=== PATIENT | female | born 1960 | race Caucasian/White ===

== ENCOUNTER 2017-01-03 14:24 | Inpatient (IN) ==
[2017-01-03] MEDS: SALINE FLUSH 10ml SYRINGE IVF PRN ×2 (14:52→16:09)
--- NOTE | 2017-01-03 15:47 | XRay Report ---
Indication: hip dislocation, past replacement repeated dislocation PROCEDURE: XR hip LT min 2V: Encounter: Initial Comparison: February 12, 2009 Findings: Lateral and posterior dislocation of the femoral component of the left total hip prosthesis. Evaluation is somewhat limited due to exposure technique and patient body habitus. No obvious acute fracture seen. Impression: Dislocation of the left hip prosthesis. .
--- OUTSIDE RECORDS SUMMARY | 2017-01-03 15:55 | External Medical Summary | Referral Summary ---
:1960 Author Organization [facility] Address [address] [place] [address] [place] [id number] Care Team Providers Name Role Phone Stacey Hansen Primary Care Physician Encounter VC Date(s): 04/14/16 - 04/14/16 [facility], [address] [place] [id number]- [place] Discharge Disposition: 01-Home or Self Care Attending Physician: Madhu Mullen MD Admitting Physician: Madhu Mullen MD Vital Signs No data available for this section Problem List Condition Effective Dates Status Health Status Informant Morbid obesity with body mass index Active (BMI) of 60.0 to 69.9 in adult(Confirmed) GERD (gastroesophageal reflux Active disease)(Confirmed) History of DVT of lower Active extremity(Confirmed) Migraine headache(Confirmed) Active Depression(Confirmed) Active Osteoarthritis(Confirmed) Active Allergies, Adverse Reactions, Alerts Substance Reaction Severity Status codeine1 Active Iron2 Active sulfa drugs3 Active 1UPSET [id number] DIARRHEA Medications ibuprofen See Instructions, 800 mg Oral PRN JOINT PAIN, 0 Refill(s) Start Date: 03/29/16 Status: Orderedpantoprazole 20 mg oral delayed release tablet 20 mg 1 tabs, Oral, Daily, 0 Refill(s) Start Date: 03/29/16 Status: Orderedsertraline See Instructions, 1 Oral Daily UNKNOWN DOSE, 0 Refill(s) Start Date: 03/29/16 Status: Ordered Results No data available for this section Immunizations No data available for this section Procedures Procedure Date Related Diagnosis Body Site Bilateral extraction of cataracts 2010 History of right total knee replacement 2009 History of left hip replacement 2008 History of right hip replacement 1993 Appendectomy 1967 Social History Social History Type Response Smoking Status Former smoker; Type: Cigarettes; Date Last Use: QUIT 40 YEARS AGO Assessment and Plan Extracted from: Title: staple removal Author: Radha Reilly RN Date: 04/14/16 Patient presents post laparoscopic cholecystectomy for staple removal. There are 7 trochar sites present that are irritated from the gilbert but not infected. They are red but not warm to the touch. Patient reports sites are itchy. Gilbert removed without difficulty. Triple anti-biotic applied to sites. Patient tolerated well. Instructed to call the office with any questions or concerns.
[2017-01-03] MEDS ORDERED: HYDROMORPHONE 2 MG/ML INJECTION IVP ONE (15:57)
--- NOTE | 2017-01-03 16:04 | Emergency Department Report ---
Extremity Problem HPI - General Chief complaint: Extremity Problem,Nontraumatic Stated complaint: L Hip out of place Time Seen by Provider: 01/03/17 14:38 Source: patient Mode of arrival: EMS Limitations: no limitations - History of Present Illness HPI Narrative: Pt was bending over when she felt her left hip come out of place. Pt has had multiple left hip dislocations to her non [place] joint. She has a history of a revision in 2008 MD Complaint: joint paint Onset (ago): hour(s) Consistency: constant Location: left Severity scale (1-10): 10 Quality: constant Radiation: none Relieving factors: nothing Exacerbating factors: range of motion Associated symptoms: denies other symptoms - Related Data Home Medications Medication Instructions Recorded Confirmed Cetirizine [Zyrtec] 10 mg PO DAILY 01/03/17 01/03/17 Sertraline [Zoloft] 100 mg PO DAILY 01/03/17 01/03/17 Previous Rx's Medication Instructions Recorded Aspirin/Calcium Carbonate/Mag 325 mg PO BID #84 tab 01/06/17 [Aspirin Buffered 325 mg Tab] Hydrocodone/APAP 5/325 [[place] 1 - 2 tab PO Q6H PRN #60 tab 01/06/17 5/325] Allergies Allergy/AdvReac Type Severity Reaction Status Date / Time codeine Allergy Unknown Verified 01/11/17 15:11 iron AdvReac Mild VOMITS Verified 01/11/17 15:11 Sulfa (Sulfonamide AdvReac Mild N&V Verified 01/11/17 15:11 Antibiotics) Rocuronium [place] Allergy Intermediate facial Uncoded 01/11/17 15:11 swelling; aches; hives; chills Review of Systems All systems: reviewed and negative except as stated Musculoskeletal: Reports: back pain, joint swelling, arthralgia [facility] Patient Stated Medical History Depression Yes Clinic Medical History (Last Reviewed 01/11/17 @ 17:26 by [facility] Zhang) DVT (deep venous thrombosis) (Chronic Medical) Arthritis (Chronic Medical) Depression (Chronic Medical) Cataracts, bilateral (Chronic Medical) Family History: Family History (Last Reviewed 01/11/17 @ 17:26 by [facility] Zhang) Father Arthritis Colon polyps Heart attack High cholesterol Mother Dementia Sister Ovarian cancer Stroke - Social History Smoking status: Never smoker Physical Exam - Limitations Limitations: physical limitation - General General appearance: alert, in distress, obese - Normal Exams: Head:: Normocephalic without trauma Eyes:: Pupils are PERRLA w/ EOMI Neck:: Full range of motion Chest/Respirations:: Clear all burd[place], with good airflow, and symmetry bilaterally Cardiovascular:: Regular rate and rhythm, without murmur or gallop, Pulses 2+ all extremities Abdomen:: Bowel sounds positive, soft, non-tender, non-distended Integumentary:: No rashes Neurological:: Patient is alert, and oriented Psychiatric:: Patient exhibits, appropriate attention, emotion and affect - Expanded Lower Extremity Exam Hip/Pelvis exam: Present: tenderness, deformity, crepitus, dislocation Course Vital Signs Temperature 98.0 F 01/03/17 14:25 Pulse Rate 99 01/03/17 14:25 Respiratory Rate 24 01/03/17 14:25 Blood Pressure 185/101 H 01/03/17 14:25 Pulse Oximetry 97 01/03/17 14:25 Temperature 96.7 F L 01/06/17 13:15 Pulse Rate 59 L 01/06/17 13:15 Respiratory Rate 16 01/06/17 13:15 Blood Pressure 124/63 01/06/17 13:15 Pulse Oximetry 96 01/06/17 13:15 Extremity Problem, Nontraumati - Differential Diagnosis Likely: lower extremity edema (fracture, dislocation) - Lab Data Result diagrams: 01/06/17 04:22 01/06/17 04:22 Disposition Clinical Impression: Left Hip Dislocation Disposition: 02 To [facility] Acute Care Condition: Improved - Seen By: midlevel
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
[2017-01-03] MEDS ORDERED: LR 1,000 ML IV SCH (18:15)
[2017-01-03] MEDS ORDERED: FentaNYL 100 MCG/2 ML INJECTION ONE (18:44)
[2017-01-03] MEDS ORDERED: PROPOFOL 20 ML ONE (18:44)
[2017-01-03] MEDS ORDERED: SUCCINYLCHOLINE 20mg/mL 10mL INJECTION ONE (18:44)
[2017-01-03] MEDS ORDERED: ONDANSETRON 4 MG/2 ML INJECTION IVP PRN ×2 (18:56→20:43)
[2017-01-03] MEDS ORDERED: HYDROMORPHONE 2 MG/ML INJECTION IVP PRN (18:56)
[2017-01-03] MEDS ORDERED: METOCLOPRAMIDE 10mg/2ml INJECTION IVP PRN (18:56)
--- NOTE | 2017-01-03 18:56 | Anesthesia Preoperative Report ---
Anesthesia Preoperative Record - Date and Time Date: 01/03/17 Preoperative Diagnosis: dislocated left mac Proposed Procedure: Closed reduction left hip NPO Since Date: 01/03/17 NPO Since Time: 13:00 Allergies/Adverse Reactions: Allergies Allergy/AdvReac Type Severity Reaction Status Date / Time codeine Allergy Unknown Verified 01/03/17 15:31 iron AdvReac Mild VOMITS Verified 01/03/17 15:31 Sulfa (Sulfonamide AdvReac Mild N&V Verified 01/03/17 15:31 Antibiotics) Rocuronium [place] Allergy Intermediate facial Uncoded 03/31/16 09:50 swelling; aches; hives; chills - Vital Signs Vital Signs: Temperature 98.0 F 01/03/17 14:25 Pulse Rate 99 01/03/17 14:25 Respiratory Rate 24 01/03/17 14:25 Blood Pressure 185/101 H 01/03/17 14:25 Pulse Oximetry 97 01/03/17 14:25 Height and Weight: Height 1.55 m Weight 147.4 kg - Medications Inpatient Medications: Current Medications Lactated Ringer's (Lactated Ringers) 1,000 mls @ 50 mls/hr IV .Q20H AKIN Sodium Chloride (Iv Flush) 10 - 80 ml IVF PRN PRN PRN Reason: Flushing Last Admin: 01/03/17 16:09 Dose: 20 ml Home Medications: Home Medications Medication Instructions Recorded Confirmed Type Ibuprofen 800 mg PO DAILY #0 07/02/09 01/03/17 History Cetirizine [Zyrtec] 10 mg PO DAILY 01/03/17 01/03/17 History Sertraline [Zoloft] 100 mg PO DAILY 01/03/17 01/03/17 History - Medical History Gastrointestional: Reports: Morbid Obesity - Surgical History Musculoskeletal Surgery/Tx: Reports: Total Hip Replacement (Left x2) Anesthesia Reactions: None Hx Family Anesthesia Reaction: No History of Motion Sickness: No - Social History Smoking Status: Never smoker Hx Chewing Tobacco Use: No Second Hand Exposure: No Substance Use Type: does not use Alcohol Intake Frequency: a few times a month - Pertinent Findings EKG: Sinus Rhythm - Physical Exam Respiratory Exam: Present: lungs clear Cardiovascular Exam: Present: regular rate and rhythm - Airway Assessment Mallampati Score: II TMD: 3 Fingerbreadths Neck Extension: good Overall Assessment: no airway concerns - ASA ASA Score: 2, E - Plan Anesthesia: General Inhalation Gases - Discussion Discussion: Discussed risks/options/alternatives of anesthesia and questions answered. Patient consents. Nursing pain assessment noted. Present for Discussion: family member Attestation Statement: Prior to the delivery of any anesthetic medication, I examined the patient, developed the plan, obtained the patient's consent and discussed the risk and benefits of the procedure with the patient/guardian. - Additional Information Seen by Anesthesia: Yes
[2017-01-03] MEDS ORDERED: GLYCOPYRROLATE 0.4 MG/2 ML INJECTION ONE (19:02)
[2017-01-03] MEDS ORDERED: DEXAMETHASONE 4 MG/ML INJECTION ONE (19:05)
[2017-01-03] MEDS ORDERED: ONDANSETRON 4 MG/2 ML INJECTION ONE (19:05)
--- NOTE | 2017-01-03 19:21 | Anesthesia Postoperative Note ---
- Date and Time Date: 01/03/17 Time: 19:20 - Status Patient Participated in Evaluation: Patient Participated in Person Vital Signs: Temperature 98.0 F 01/03/17 14:25 Pulse Rate 99 01/03/17 14:25 Respiratory Rate 24 01/03/17 14:25 Blood Pressure 185/101 H 01/03/17 14:25 Pulse Oximetry 97 01/03/17 14:25 Respiratory Function: Airway Patent Cardiovascular Function: Regular Pulse EKG: Sinus Rhythm Mental Status: Alert and Oriented Pain Intensity: 0 Hydration: IV Infusing Complications During Recover: None Apparent - Follow-Up Instructions Instructions: Per Surgeon
[2017-01-03] MEDS ORDERED: MORPHINE SULFATE 10 MG/ML VIAL IVP PRN (20:43)
[2017-01-03] MEDS ORDERED: SENNA + DOCUSATE TABLET PO PRN (20:43)
[2017-01-03] MEDS ORDERED: ENOXAPARIN 40 MG/0.4 ML INJECTION SQ ONE (21:00)
[2017-01-03] MEDS: LR 1,000 ML IV SCH (21:22)
[2017-01-03] MEDS: HYDROCODONE/APAP 5mg/325mg TABLET PO PRN (23:22)
[2017-01-04] MEDS: IBUPROFEN 800 MG TABLET PO PRN ×2 (04:53→20:40)
--- NOTE | 2017-01-04 08:41 | Orthopedic Progress Note ---
Date: Subjective/Severity of Illness: Cynthia underwent a successful closed reduction of her left total hip dislocation under anesthesia last evening. She has a constrained type hip system with a locking ring. That ring will require an open procedure to restore it properly into the acetabular shell and liner. We will need to get new implants ordered in today and will plan to do an open revision of these components on . Cynthia is not having much pain this AM but is tired of lying on her back. She has some numbness in her foot that has been there since her last revision. No new complaints or concerns. Orthopedic Objective PO Vital signs: Temperature 96.6 F L 01/04/17 07:00 Pulse Rate 66 01/04/17 07:00 Respiratory Rate 16 01/04/17 07:00 Blood Pressure 135/67 01/04/17 07:00 Pulse Oximetry 91 01/04/17 07:00 Height and Weight: Height 5 ft 1 in Weight 323 lb 6.69 oz - Constitutional General Appearance: Present: alert, mild distress, morbidly obese - Respiratory Exam Present: non-labored - Cardiovascular Exam Present: pedal pulses intact - Integumentary Exam Present: pink, warm, dry - Neurological Exam Present: intact to light touch (But reports some numbness medial foot and lateral calf.), no deficits - Psychiatric Exam Present: alert, normal affect Orthopedic Assessment and Plan (1) Dislocation of hip, left, closed Status: Acute Assessment and Plan: Cynthia will be NPO after midnight tonight. Change to an inpatient status as I expect her stay to be more than 2 midnights. Plan open revision of the left total hip . Lovenox and SCDs for DVT coverage. Check labs in the AM. - Anticoagulation Therapy Anticoagulation: other (Lovenox ) Hospital Course Summary Disclaimer: The visit summary below is not to be considered part of the above Progress Note.
[2017-01-04] MEDS ORDERED: ENOXAPARIN 40 MG/0.4 ML INJECTION SQ ONE (09:00)
[2017-01-04] MEDS: LR 1,000 ML IV SCH ×2 (09:18→20:37)
[2017-01-04] MEDS: SERTRALINE 100 MG TABLET PO SCH (09:18)
[2017-01-04] MEDS: HYDROCODONE/APAP 5mg/325mg TABLET PO PRN ×4 (09:27→22:20)
[2017-01-04] MEDS: POLYETHYL GLYCOL 3350 17gm PACKET PO SCH (10:03)
[2017-01-04] MEDS: CETIRIZINE 10 MG TABLET PO SCH (10:03)
--- NOTE | 2017-01-04 11:15 | Operative Note ---
DATE OF OPERATION 01/03/2017 PREOPERATIVE DIAGNOSIS Left hip replacement dislocation. POSTOPERATIVE DIAGNOSIS Left hip replacement dislocation. PROCEDURE Closed reduction of left total hip arthroplasty. SURGEON Mohit Sigala MD CONSTRUCTION REP Manas Jacques PA-C COMPLICATIONS None ANESTHESIA General endotracheal tube DESCRIPTION OF PROCEDURE Mrs. Oscar and her left hip are identified and marked in the preoperative holding area. She was brought back to the operating suite and placed supine on the operating table. She was placed under general anesthesia. A [place] catheter was placed. Time-out was performed. I began by pulling longitudinal traction with the hip flexed in 50 degrees. I was unable to feel any obvious clunk. Patient's body habitus made it difficult to palpate the hip contours. We then brought in fluoroscopy and with the advantage of fluoro, we could get the ball back perched centrally into the liner but it did not push into the liner. We gave it some gentle pressure on the greater trochanter towards the acetabulum and with this we did feel a clunk and x-ray confirmed that the head was back into the liner. The constrained ring of course was still out of place but did not show any signs of fracture. A pillow was placed between the patient's legs. She was allowed to awake from general anesthesia and taken to the recovery room under the care of Anesthesia. She tolerated the procedure well and there were no complications. OPAL
--- NOTE | 2017-01-04 11:23 | Remote Fluorsocopy Report ---
Indication: DISLOCATION PROCEDURE: RF hip LT 2 view: Encounter: Initial Comparison: Left hip radiograph dated January 03, 2017 Findings: Six fluoroscopic spot images are submitted for interpretation. Images show interval reduction of the left femoral component dislocation. Impression: Fluoroscopy as above. Fluoroscopy time is 61 seconds. Fluoroscopy dose is 3790 mRad. .
[2017-01-05] MEDS: LR 1,000 ML IV SCH ×4 (05:30→14:05)
[2017-01-05] MEDS: POLYETHYL GLYCOL 3350 17gm PACKET PO SCH (08:02)
[2017-01-05] MEDS: SERTRALINE 100 MG TABLET PO SCH (08:02)
[2017-01-05] MEDS: CETIRIZINE 10 MG TABLET PO SCH (08:02)
[2017-01-05] MEDS: SALINE FLUSH 10ml SYRINGE IVF PRN (10:01)
[2017-01-05] MEDS ORDERED: MIDAZOLAM 2mg/2ml INJECTION IVP ONE (11:53)
[2017-01-05] MEDS ORDERED: ACETAMINOPHEN IV 1,000 MG/100 ML VIAL IV ONE (11:54)
--- NOTE | 2017-01-05 11:57 | Anesthesia Preoperative Report ---
Anesthesia Preoperative Record - Date and Time Date: 01/05/17 Preoperative Diagnosis: dislocated left mac Proposed Procedure: left hip revision NPO Since Date: 01/04/17 NPO Since Time: 23:00 Allergies/Adverse Reactions: Allergies Allergy/AdvReac Type Severity Reaction Status Date / Time codeine Allergy Unknown Verified 01/03/17 15:31 iron AdvReac Mild VOMITS Verified 01/03/17 15:31 Sulfa (Sulfonamide AdvReac Mild N&V Verified 01/03/17 15:31 Antibiotics) Rocuronium [place] Allergy Intermediate facial Uncoded 03/31/16 09:50 swelling; aches; hives; chills - Vital Signs Vital Signs: Temperature 97.2 F 01/05/17 07:47 Pulse Rate 62 01/05/17 07:47 Respiratory Rate 16 01/05/17 07:47 Blood Pressure 130/78 01/05/17 07:47 Pulse Oximetry 92 01/05/17 07:47 Height and Weight: Weight 148.1 kg - Medications Inpatient Medications: Current Medications Acetaminophen/Hydrocodone Bitart ([place] 5/325) 1 - 2 tab PO Q6H PRN PRN Reason: Pain Last Admin: 01/04/17 22:20 Dose: 2 tab Cefazolin Sodium (Kefzol) 3 g IVP PREOP ONE Stop: 01/05/17 12:01 Cetirizine HCl (Zyrtec) 10 mg PO DAILY [facility] Last Admin: 01/05/17 08:02 Dose: Not Given Lactated Ringer's (Lactated Ringers) 1,000 mls @ 80 mls/hr IV .[id number] [facility] Last Admin: 01/05/17 11:29 Dose: Not Given Lactated Ringer's (Lactated Ringers) 1,000 mls @ 50 mls/hr IV .Q20H [facility] Last Admin: 01/05/17 10:01 Dose: 50 mls/hr Acetaminophen (Ofirmev) 1,000 mg in 100 mls @ 400 mls/hr IV O ONE Stop: 01/05/17 12:08 Ibuprofen (Motrin) 800 mg PO Q8H PRN PRN Reason: Pain Last Admin: 01/04/17 20:40 Dose: 800 mg Magnesium Hydroxide (Mom) 30 ml PO DAILY PRN PRN Reason: Constipation Midazolam HCl (Versed) 2 mg IVP PREOP ONE Stop: 01/05/17 11:54 Morphine Sulfate (Morphine Sulfate Vial) 1 - 4 mg IVP Q2H PRN PRN Reason: Pain Last Admin: 01/05/17 05:28 Dose: 3 mg Nystatin (Mycostatin) 1 applic TP TID [facility] Last Admin: 01/05/17 08:02 Dose: 1 applic Ondansetron HCl (Zofran) 4 mg IVP Q6H PRN PRN Reason: Nausea &/or vomiting Polyethylene Glycol (Miralax) 17 gm PO DAILY [facility] Last Admin: 01/05/17 08:02 Dose: Not Given Senna/Docusate Sodium (Senna Plus Tablet) 1 tab PO BID PRN PRN Reason: Constipation Sertraline HCl (Zoloft) 100 mg PO DAILY [facility] Last Admin: 01/05/17 08:02 Dose: Not Given Home Medications: Home Medications Medication Instructions Recorded Confirmed Type Ibuprofen 800 mg PO DAILY #0 07/02/09 01/03/17 History Cetirizine [Zyrtec] 10 mg PO DAILY 01/03/17 01/03/17 History Sertraline [Zoloft] 100 mg PO DAILY 01/03/17 01/03/17 History Is Patient on Beta Landy?: No - Medical History Respiratory: DENIES: Asthma Cardiovascular: DENIES: Hypertension Gastrointestional: DENIES: Gastroesophageal Reflux Disease Renal/Endocrine: Reports: Other (morbid obesity) DENIES: Diabetes Mellitus Type 2 Other History: DENIES: Anesthesia Reactions - Surgical History Respiratory Surgery/Treatments: DENIES: BiPAP Use Musculoskeletal Surgery/Tx: Reports: Total Hip Replacement (Left x2) Anesthesia Reactions: None Hx Family Anesthesia Reaction: No History of Motion Sickness: No - Social History Smoking Status: Never smoker Hx Chewing Tobacco Use: No Second Hand Exposure: No Substance Use Type: does not use Alcohol Intake Frequency: a few times a month - Pertinent Findings Laboratory: CBC and BMP 01/05/17 04:16 01/05/17 04:16 [facility] 01/05/17 04:16 Sodium 144 Potassium 4.4 Chloride 103 Carbon Dioxide 32 H BUN 21.0 H Creatinine 0.9 Glucose 100 Calcium 9.2 EKG: Sinus Rhythm - Physical Exam Respiratory Exam: Present: lungs clear, bilateral breath sounds equal Cardiovascular Exam: Present: regular rate and rhythm - Airway Assessment Mallampati Score: II TMD: 3 Fingerbreadths Neck Extension: good Overall Assessment: may be difficult mask vent, may be difficult intubation - ASA ASA Score: 2, E - Plan Anesthesia: General Inhalation Gases - Discussion Discussion: Discussed risks/options/alternatives of anesthesia and questions answered. Patient consents. Nursing pain assessment noted. Present for Discussion: family member Attestation Statement: Prior to the delivery of any anesthetic medication, I examined the patient, developed the plan, obtained the patient's consent and discussed the risk and benefits of the procedure with the patient/guardian. - Additional Information Seen by Anesthesia: Yes
[2017-01-05] MEDS ORDERED: CEFAZOLIN 1 G INJECTION IVP ONE (12:00)
[2017-01-05] MEDS ORDERED: FentaNYL 100 MCG/2 ML INJECTION ONE (12:03)
[2017-01-05] MEDS ORDERED: PROPOFOL 500 MG/50 ML VIAL IV ONE (12:03)
[2017-01-05] MEDS ORDERED: DEXAMETHASONE 4 MG/ML INJECTION ONE (12:07)
[2017-01-05] MEDS ORDERED: DiphenhydrAMINE 50 MG/ML INJECTION ONE (12:07)
[2017-01-05] MEDS ORDERED: ONDANSETRON 4 MG/2 ML INJECTION ONE (12:07)
[2017-01-05] MEDS ORDERED: SUCCINYLCHOLINE 20mg/mL 10mL INJECTION ONE (12:29)
[2017-01-05] MEDS ORDERED: TOTAL JOINT INJECTION MIXTURE 65.25 ml OPSITE ONE (12:30)
[2017-01-05] MEDS ORDERED: VANCOMYCIN 1,000 MG INJECTION ONE (13:27)
[2017-01-05] MEDS: TRANEXAMIC ACID 1gm/NS 100ml IRR MIX IR ONE ×2 (13:57→15:49)
[2017-01-05] MEDS: VANCOMYCIN 1,000 MG INJECTION IAR ONE ×2 (13:58→15:49)
[2017-01-05] MEDS ORDERED: HYDROMORPHONE 2 MG/ML INJECTION ONE (14:40)
--- NOTE | 2017-01-05 15:02 | Anesthesia Postoperative Note ---
- Date and Time Date: 01/05/17 Time: 15:01 - Status Patient Participated in Evaluation: Patient Participated in Person Vital Signs: Temperature 97.2 F 01/05/17 07:47 Pulse Rate 64 01/05/17 12:10 Respiratory Rate 13 01/05/17 12:10 Blood Pressure 150/67 H 01/05/17 12:10 Pulse Oximetry 94 01/05/17 12:10 Respiratory Function: Airway Patent Cardiovascular Function: Regular Pulse EKG: Sinus Rhythm Mental Status: Alert and Oriented Pain Intensity: 4 Hydration: IV Infusing Complications During Recover: None Apparent - Follow-Up Instructions Instructions: Per Surgeon
[2017-01-05] MEDS ORDERED: NOZIN NASAL SWAB NAS ONE (15:45)
[2017-01-05] MEDS: NS 1,000 ML IV SCH (15:48)
[2017-01-05] MEDS: NOZIN NASAL SWAB NAS SCH ×3 (15:51→23:05)
--- NOTE | 2017-01-05 16:12 | XRay Report ---
Indication: postop x-ray PROCEDURE: XR pelvis 1-2V: Encounter: Initial Comparison: January 03, 2017 Findings: Bilateral total hip replacements. Subcutaneous gas in the left sided soft tissues. No evidence of hardware failure. No acute fracture identified. Impression: Findings as above. .
[2017-01-05] MEDS ORDERED: ENOXAPARIN 40 MG/0.4 ML INJECTION SQ SCH (21:00)
[2017-01-05] MEDS: CEFAZOLIN 2 G in NS 100 ML IV SCH (21:22)
[2017-01-05] MEDS: HYDROCODONE/APAP 5mg/325mg TABLET PO PRN (21:41)
--- NOTE | 2017-01-05 22:48 | Operative Note ---
DATE OF SURGERY 01/05/2017 PREOPERATIVE DIAGNOSIS Left total hip arthroplasty instability. POSTOPERATIVE DIAGNOSIS Left total hip arthroplasty instability. PROCEDURE Open reduction of left total hip arthroplasty. SURGEON Carla Sigala MD CHARGE ENTRY CLERK Manas Jacques PA-C COMPLICATIONS None. ANESTHESIA General endotracheal tube. DESCRIPTION OF PROCEDURE Mrs. Oscar and her left hip were identified and marked in the preoperative holding area. She was brought back to the operating suite and placed supine on the operating table. She was placed under general anesthesia and intubated. She was then placed in a lateral decubitus position and her left lower extremity was prepped and draped in my normal sterile fashion. Timeout was performed. Surgery was made more difficult by the patient's morbid obesity. I utilized the middle third of the previous posterior approach incision. Electrocautery was used to dissect through subcutaneous tissue down to muscle fascia which was then split in line with the skin incision. Retractors were placed. Previous scar tissue was incised and the neck identified followed by stem. I followed the stem down to the head. At this time it was dislocated. Further dissection released scar tissue and capsule. It revealed that the ring was still intact and it was around the femoral head. Some soft tissue was cleared anteriorly so that we could place the femoral head back into the plastic liner. It took some time to clear all the soft tissue from around the plastic liner which did not appear damaged. The ring also was not damaged. I was then able to place the ring back into its groove within the liner and tamp it down with a tamp, working my way around until the entire thing was down. We then took the hip through a range of motion and did not see any signs of instability or failure of the metal ring or plastic liner. It appeared to be stable up to 90 degrees of flexion with internal rotation to 30-40 degrees. The wound was thoroughly irrigated with Betadine. Joint cocktail was injected throughout soft tissues. 1 g of vancomycin powder was placed into the joint. The capsulotomy was then repaired with #1 Ethibond. 1 g of TXA was placed into the wound and then drained out after five minutes. #1 Vicryl was used in the muscle fascia. Another layer of #1 Vicryl was placed into the fat. 2-0 Vicryl was then used in the subcutaneous tissue followed by an incisional wound pack. The drapes were then removed. The patient was placed back into a supine position and allowed to awaken from anesthesia, extubated and taken to the recovery room under the care of Anesthesia. She tolerated the procedure well. There were no complications. OPAL
[2017-01-06] MEDS: HYDROCODONE/APAP 5mg/325mg TABLET PO PRN ×3 (02:20→15:03)
[2017-01-06] MEDS: CEFAZOLIN 2 G in NS 100 ML IV SCH (05:33)
[2017-01-06] MEDS: NOZIN NASAL SWAB NAS SCH ×3 (05:34→15:30)
[2017-01-06] MEDS: SERTRALINE 100 MG TABLET PO SCH (08:43)
[2017-01-06] MEDS: POLYETHYL GLYCOL 3350 17gm PACKET PO SCH (08:43)
[2017-01-06] MEDS: CETIRIZINE 10 MG TABLET PO SCH (10:25)
[2017-01-06] MEDS: NS 1,000 ML IV SCH (10:25)
--- NOTE | 2017-01-06 12:06 | Discharge Summary ---
Orthopedic Discharge Info Date of admission: 01/04/17 09:00 Anticipated date of discharge: 01/06/17 Primary care physician: MD Stacey Connolly DO Attending Physician: Mohit Sigala MD - Discharge Diagnosis (1) Dislocation of hip, left, closed Status: Acute - Procedures Procedures: Procedures Revision of hip replacement, both acetabular and femoral components (02/12/09) Total hip replacement (08/19/08) Total knee replacement (07/02/09) - Laboratory Result Diagrams: 01/06/17 04:22 01/06/17 04:22 Laboratory: Abnormal lab results 01/06/17 01/06/17 Range/Units 04:22 04:22 WBC 13.1 H (4.5-11.0) T/MM3 Hgb 11.8 L (12-16) GM/DL Neut % (Auto) 80.9 H (33-66) % Lymph % (Auto) 12.4 L (23-45) % Neut # 10.6 H (1.8-7.7) T/MM3 Carbon Dioxide 32 H (22-30) MEQ/L H & H 01/05/17 01/06/17 Range/Units 04:16 04:22 Hgb 12.1 11.8 L (12-16) GM/DL Hct 38.9 37.8 (36-46) % Orthopedic Discharge HPI - HPI Comments Cynthia is a 56 yo lady who had a left FRANCES in 2008 and unfortunately, suffered a couple dislocations within months after surgery. She had the left hip revised by Dr Quintero later in 2008, using a constrained type liner. Cynthia had no more trouble with this hip until today when she experienced severe pain after bending over. She was brought to [facility] [place] and xrays revealed a dislocation of her left total hip. There is no fracture associated with this. She reports numbness of the medial foot and lateral calf region. No additional injury or complaints related to this event. Orthopedic Hospital Course Hospital course: 01/06/17 12:03 After admission, the pt was taken directly to the operating room and underwent a closed reduction of her total hip implant. The constrained liner had a ring that would require an open procedure to repair and implants had to be ordered to prepare for possible revision if needed. Therefore, open surgical repair vs revision was delayed until implants were available. She was taken back to the operating room on 01/05/17 and underwent repair of the constrained liner / ring. No revision of the implants were required to resolve her problem. Following surgery, antibiotics were discontinued less than 24 hours according to joint protocol. Appropriate anticoagulants were initiated and SCDs added for DVT prevention. The dressing was clean, dry, and intact. Pain control was obtained via multimodal approach. Bowel motivation addressed with scheduled and PRN medications. Early mobilization was initiated through PT services. Discharge arrangements made by a collaborative effort between the patient and Case Management. Follow-up is scheduled in 2-3 weeks. Discharge instructions given by orthopedic providers and nursing staff at discharge. Discharge condition was good. Ongoing care required?: No Discharge Plan - Med Rec/Dispo Referrals/Follow Up: Lolis Tinajero MD [Primary Care Provider] - Stacey Hansen DO [Family Provider] - [place] Instructions: [facility] Postop Instructions Additional Instructions: Follow hip dislocation precautions. Prescriptions: New Hydrocodone/APAP 5/325 [[place] 5/325] 1 - 2 tab PO Q6H PRN #60 tab PRN Reason: Pain Senna + Docusate [Senna Plus Tablet] 1 tab PO BID PRN tablet PRN Reason: Constipation Aspirin/Calcium Carbonate/Mag [Aspirin Buffered 325 mg Tab] 325 mg PO BID # 84 tab Milk of Magnesia [Mom] 30 ml PO DAILY PRN udc PRN Reason: Constipation Continue Ibuprofen 800 mg PO Q8H PRN 21 Days #63 tab PRN Reason: PAIN Cetirizine [Zyrtec] 10 mg PO DAILY Ibuprofen 800 mg PO DAILY #0 Sertraline [Zoloft] 100 mg PO DAILY - Disposition 01 Discharged Home, Self-Care
[2017-01-06 13:16] VITALS: BP 124/63; PULSE 59; RESP 16; TEMP 96.7; O2SAT 96
== END 2017-01-06 17:35 | disposition home or self-care (01) | DRG 467 ==
LOC: ED 14:24 → SRG 18:30 → SUR 18:30 → SRG 18:33
PROVIDERS: ADMIT Orthopaedic Surgery; ATTEND Orthopaedic Surgery